=== PATIENT | male | born 2000 | race Hispanic/Latino ===

== ENCOUNTER 2023-11-27 21:11 | Emergency (ER) | payer SELFPAY, OTHER | END 2023-11-27 22:39 | disposition home or self-care (01) | LOC: ERS 21:11 | DX: S00.03XA Contusion of scalp, initial encounter (principal); S09.90XA Unspecified injury of head, initial encounter; S00.81XA Abrasion of other part of head, initial encounter; W50.0XXA Accidental hit or strike by another person, initial encounter | CPT/HCPCS: 70450; 70486; 72125 ==